=== PATIENT | male | born 1975 | race African-American/Black ===

== ENCOUNTER 2022-01-12 23:08 | Inpatient (IN) | payer SELFPAY ==
[~2022-01-12 23:08] MED LIST: Iopamidol 370 76% 100 ML VIAL ONE
[2022-01-12] MEDS ORDERED: Labetalol HCl 100 MG/20 ML VIAL ONE (23:37)
[2022-01-12 23:39] LABS: #Eosinphils 0.1 10x3/uL (0.0-0.5); #Monocytes 0.4 10x3/uL (0.0-1.1); #Neutrophils 2.8 10x3/uL (1.5-8.4); %Basophils 0.2 % (0.0-2.0); %Eosinophils 1.1 % (0.0-6.0); %Lymphocytes 39.7 % (18.0-47.0); %Monocytes 7.1 % (0.0-10.0); %Neutrophils 51.7 % (40.0-75.0); Hemoglobin 11.9 g/dL (13.5-17.5); Mean Corpuscular HGB CONC 33.5 g/dL (32.0-36.0); Mean Corpuscular Hemoglobin 25.6 pg (27.0-33.0); Mean Corpuscular Volume 76.3 fl (81.2-95.1); Mean Platelet Volume 11.7 fl (7.4-10.4); Platelet Count 250 10x3/uL (150-450); RBC Distribution Width 14.6 % (11.5-14.5); Red Blood Cell (RBC) Count 4.65 10x6/uL (4.32-5.72); White Blood Cell (WBC) Count 5.3 10x3/uL (3.5-10.5)
[2022-01-12 23:47] LABS: INR-International Normal Ratio 0.9; PTT 24.1 sec (22.0-33.0); Prothrombin Time 9.9 sec (9.5-12.1)
[2022-01-12 23:50] LABS: ALT (SGPT) 20 U/L (8-55); AST (SGOT) 16 U/L (5-34); Albumin 3.1 g/dL (3.5-5.0); Alkaline Phosphatase 110 U/L (40-110); Anion Gap 13 mmol/L (10-20); BUN (Urea Nitrogen) 18 mg/dL (8.9-20.6); Bilirubin, Total 0.2 mg/dL (0.2-1.2); Calc. Creatinine Clearance 0 mL/min (70-130); Carbon Dioxide 27 mmol/L (22-29); Chloride 93 mmol/L (98-107); Estimated GFR 41; Globulin 3.4 g/dL (2.4-3.5); Protein, Total 6.5 g/dL (6.0-8.3); Sodium 129 mmol/L (136-145)
[2022-01-12 23:55] LABS: Glucose 773 mg/dL (70-105)
[2022-01-13] MEDS ORDERED: Insulin Regular 300 UNITS/3 ML VIAL ONE (00:12)
[2022-01-13] MEDS ORDERED: Aspirin 325 MG TAB ONE (00:59)
[2022-01-13] MEDS ORDERED: Senokot S 8.6-50 MG TAB PO PRN (01:10)
[2022-01-13] MEDS ORDERED: Ondansetron PF 4 MG/2 ML Vial IVP PRN (01:10)
[2022-01-13] MEDS ORDERED: Calcium Carbonate 500 MG ChewTAB PO PRN (01:10)
[2022-01-13] MEDS ORDERED: Dextrose 5% in Water 1,000 ML IV PRN (01:15)
[2022-01-13] MEDS ORDERED: Dextrose 50% Abboject 50 ML SYRINGE SLOW IVP PRN (01:15)
[2022-01-13] MEDS ORDERED: Sodium Chloride 0.9% 1,000 ML IV SCH (01:15)
[2022-01-13] MEDS ORDERED: Sodium Chloride 0.9% 500 ML IV SCH (01:15)
[2022-01-13 03:00] LABS: Amphetamine Not Detected (NotDetected); Barbiturates Screen Not Detected (NotDetected); Benzodiazepine Screen Not Detected (NotDetected); Cocaine Metabolite Screen Not Detected (NotDetected); Methadone Not Detected (NotDetected); Methamphetamine Not Detected (NotDetected); Opiate Screen Not Detected (NotDetected); Oxycodone Screen Not Detected (NotDetected); Phencyclidine (PCP) Not Detected (NotDetected); THC/Cannabinoid Screen Not Detected (NotDetected); Tricyclic Screen Not Detected (NotDetected)
[2022-01-13 03:17] LABS: SARS-CoV-2 NAA Rapid Test DETECTED (NotDetected)
[2022-01-13 04:44] LABS: Cardiac Risk 8.8 (Less than 4.5); Cholesterol 210 mg/dl (< 200 Desired); HDL Cholesterol 24 mg/dL (>60 Neg Risk)
[2022-01-13 05:06] LABS: Triglycerides 1303 mg/dL (Less than 150)
[2022-01-13] MEDS: HumaLOG 300 UNITS/3 ML VIAL SC PRN ×4 (06:16→21:22)
[2022-01-13] MEDS ORDERED: Amlodipine 10 MG TAB PO SCH (09:00)
[2022-01-13] MEDS ORDERED: Clarithromycin 500 MG TAB PO SCH (09:00)
[2022-01-13] MEDS ORDERED: Clarithromycin 250 MG TAB PO SCH (09:00)
[2022-01-13] MEDS: Enoxaparin Sodium 40 MG/0.4 ML SYRINGE SC SCH (09:41)
[2022-01-13] MEDS: Lantus 1000 UNITS/10 ML VIAL SC SCH (09:42)
[2022-01-13] MEDS: metroNIDAZOLE 500 MG TAB PO SCH ×3 (09:42→21:13)
[2022-01-13 12:44] LABS: Hemoglobin A1c Greater than 14.0 % (4.0-6.0)
[2022-01-13] MEDS: hydrALAZINE 20 MG/ML VIAL SLOW IVP PRN ×3 (13:00→21:20)
[2022-01-13 14:31] LABS: INR-International Normal Ratio 0.9; PTT 25.5 sec (22.0-33.0); Prothrombin Time 9.8 sec (9.5-12.1)
[2022-01-13 14:45] LABS: D-Dimer Test 0.67 mg/L FEU (0.19-0.50)
[2022-01-13] MEDS ORDERED: (RENAL) NIRMATRELVIR 150 MG/RITONAVIR 100 MG TABLET PO SCH (21:00)
[2022-01-13] MEDS ORDERED: Rosuvastatin 20 MG TAB PO SCH (21:00)
[2022-01-13] MEDS ORDERED: Atorvastatin Calcium 20 MG TAB PO SCH (21:00)
[2022-01-13] MEDS: Clarithromycin 250 MG TAB PO SCH (21:13)
[2022-01-13] MEDS: (RENAL) NIRMATRELVIR 150 MG/RITONAVIR 100 MG TABLET PO SCH (21:14)
[2022-01-13] MEDS: Acetaminophen 325 MG TAB PO PRN (21:24)
[2022-01-14 05:25] LABS: #Eosinphils 0.1 10x3/uL (0.0-0.5); #Monocytes 0.4 10x3/uL (0.0-1.1); #Neutrophils 3.5 10x3/uL (1.5-8.4); %Basophils 0.2 % (0.0-2.0); %Lymphocytes 34.3 % (18.0-47.0); %Monocytes 6.5 % (0.0-10.0); %Neutrophils 57.8 % (40.0-75.0); Hemoglobin 10.8 g/dL (13.5-17.5); Mean Corpuscular HGB CONC 34.1 g/dL (32.0-36.0); Mean Corpuscular Hemoglobin 25.4 pg (27.0-33.0); Mean Corpuscular Volume 74.6 fl (81.2-95.1); Mean Platelet Volume 11.3 fl (7.4-10.4); Platelet Count 235 10x3/uL (150-450); RBC Distribution Width 14.5 % (11.5-14.5); Red Blood Cell (RBC) Count 4.25 10x6/uL (4.32-5.72)
[2022-01-14 05:36] LABS: Anion Gap 13 mmol/L (10-20); BUN (Urea Nitrogen) 20 mg/dL (8.9-20.6); Calc. Creatinine Clearance 95 mL/min (70-130); Calcium 8.9 mg/dL (7.8-10.44); Carbon Dioxide 25 mmol/L (22-29); Chloride 102 mmol/L (98-107); Estimated GFR 61; Glucose 396 mg/dL (70-105); Potassium 3.9 mmol/L (3.5-5.1); Sodium 136 mmol/L (136-145)
[2022-01-14] MEDS: HumaLOG 300 UNITS/3 ML VIAL SC PRN ×4 (05:38→21:06)
[2022-01-14] MEDS: hydrALAZINE 20 MG/ML VIAL SLOW IVP PRN ×3 (05:57→21:06)
[2022-01-14] MEDS: metroNIDAZOLE 500 MG TAB PO SCH ×3 (09:53→21:05)
[2022-01-14] MEDS: Enoxaparin Sodium 40 MG/0.4 ML SYRINGE SC SCH (09:53)
[2022-01-14] MEDS: Amlodipine 10 MG TAB PO SCH (09:53)
[2022-01-14] MEDS: Aspirin 81 mg Enteric Coated Tablet PO SCH (09:53)
[2022-01-14] MEDS: Clarithromycin 250 MG TAB PO SCH ×2 (09:53→21:05)
[2022-01-14] MEDS: (RENAL) NIRMATRELVIR 150 MG/RITONAVIR 100 MG TABLET PO SCH ×2 (09:54→21:06)
[2022-01-14] MEDS: Lantus 1000 UNITS/10 ML VIAL SC SCH (09:54)
[2022-01-14] MEDS: Acetaminophen 325 MG TAB PO PRN (09:55)
[2022-01-14] MEDS ORDERED: Fenofibrate 48 MG TAB PO SCH (12:00)
[2022-01-15] MEDS: hydrALAZINE 20 MG/ML VIAL SLOW IVP PRN (00:15)
[2022-01-15] MEDS: HumaLOG 300 UNITS/3 ML VIAL SC PRN (00:16)
[2022-01-15] MEDS: Acetaminophen 325 MG TAB PO PRN (03:10)
[2022-01-15] MEDS ORDERED: Fenofibrate 48 MG TAB PO SCH (09:00)
[2022-01-15] MEDS ORDERED: Losartan 25 MG TAB PO SCH (09:00)
[2022-01-15] MEDS: Aspirin 81 mg Enteric Coated Tablet PO SCH (09:41)
[2022-01-15] MEDS: Clarithromycin 250 MG TAB PO SCH (09:41)
[2022-01-15] MEDS: Lantus 1000 UNITS/10 ML VIAL SC SCH (09:41)
[2022-01-15] MEDS: Amlodipine 10 MG TAB PO SCH (09:41)
[2022-01-15] MEDS: (RENAL) NIRMATRELVIR 150 MG/RITONAVIR 100 MG TABLET PO SCH (09:41)
[2022-01-15] MEDS: metroNIDAZOLE 500 MG TAB PO SCH (09:41)
[2022-01-15] MEDS: Enoxaparin Sodium 40 MG/0.4 ML SYRINGE SC SCH (09:41)
[2022-01-15 12:10] VITALS: TEMP 97.9
[2022-01-15 12:52] VITALS: BP 168/86
[2022-01-16 20:57] LABS: Cardiolipin IgA Ab 4.6 APL-U/mL (<14 Negative); Cardiolipin IgG Ab 0.7 GPL-U/mL (<10 Negative); Cardiolipin IgM Ab 1.1 MPL-U/mL (<10 Negative); EliA APS New Method **** NEW METHOD ****
[2022-01-18 11:26] LABS: Protein C Activity 136 % (78-152)
[2022-01-18 13:27] LABS: Factor VIII Test 236.7 % ACTIVE (56-157)
[2022-01-18 15:01] LABS: HEX PHOS LA Tube 1 43.3 SEC; HEX PHOS LA Tube 2 41.8 SEC; Hexagonal Phospholipid Neut 1.5 SEC (0-8.0)
== END 2022-01-15 13:11 | disposition home or self-care (01) | DRG 64 ==
LOC: CSHERS 23:08 → CSHTELE 01-13 02:03
PROVIDERS: ADMIT Student in an Organized Health Care Education/Training Program; ATTEND Family Medicine
PROC: 8E0ZXY6 Isolation (ICD-10-PCS; principal; 2022-01-13)
PROC: XW0DXF5 Introduction of Other New Technology Therapeutic Substance into Mouth and Pharynx, External Approach, New Technology Group 5 (ICD-10-PCS; 2022-01-13)
DX: I63.81 Other cerebral infarction due to occlusion or stenosis of small artery (principal); U07.1 COVID-19; A04.8 Other specified bacterial intestinal infections; N17.9 Acute kidney failure, unspecified; I16.1 Hypertensive emergency; G81.91 Hemiplegia, unspecified affecting right dominant side; E11.65 Type 2 diabetes mellitus with hyperglycemia; N18.2 Chronic kidney disease, stage 2 (mild); E11.22 Type 2 diabetes mellitus with diabetic chronic kidney disease; I12.9 Hypertensive chronic kidney disease with stage 1 through stage 4 chronic kidney disease, or unspecified chronic kidney disease; R29.810 Facial weakness; R29.704 NIHSS score 4; D53.9 Nutritional anemia, unspecified; K27.9 Peptic ulcer, site unspecified, unspecified as acute or chronic, without hemorrhage or perforation; R47.1 Dysarthria and anarthria; E78.5 Hyperlipidemia, unspecified; Z79.84 Long term (current) use of oral hypoglycemic drugs; Z88.0 Allergy status to penicillin; Z79.4 Long term (current) use of insulin; Z87.891 Personal history of nicotine dependence; Z98.890 Other specified postprocedural states; Z79.82 Long term (current) use of aspirin; Z79.899 Other long term (current) drug therapy; Z83.3 Family history of diabetes mellitus; Z86.19 Personal history of other infectious and parasitic diseases
CPT/HCPCS: 36415; 36416; 70450; 70496; 70498; 70551; 71045; 80048; 80053; 80061; 80306; 82010; 83036; 83090; 84484; 85025; 85240; 85300; 85303; 85305; 85307; 85379; 85598; 85610; 85730; 86147; 93005; 93306; 93880; 96374; 96375; J0360; J1650; J1815; J2405; J7030; J7050; Q9967; U0002

== ENCOUNTER 2023-03-06 13:32 | Inpatient (IN) | payer BC, SELFPAY ==
[2023-03-06] MEDS ORDERED: Nitroglycerin 2% Ointment 1 INCH/1 GM Packet ONE (13:58)
[2023-03-06] MEDS ORDERED: Furosemide 40 MG/4 ML VIAL ONE (13:58)
[2023-03-06 14:33] LABS: ALT (SGPT) 22 U/L (8-55); AST (SGOT) 24 U/L (5-34); Albumin 3.2 g/dL (3.5-5.0); Alkaline Phosphatase 78 U/L (40-110); Anion Gap 14 mmol/L (10-20); BUN (Urea Nitrogen) 52 mg/dL (8.9-20.6); Bilirubin, Total Less than 0.2 mg/dL (0.2-1.2); Calc. Creatinine Clearance 0 mL/min (70-130); Calcium 7.7 mg/dL (7.8-10.44); Carbon Dioxide 17 mmol/L (22-29); Chloride 114 mmol/L (98-107); Estimated GFR 17; Globulin 2.9 g/dL (2.4-3.5); Glucose 110 mg/dL (70-105); Protein, Total 6.1 g/dL (6.0-8.3); Sodium 140 mmol/L (136-145)
[2023-03-06 14:35] LABS: #Eosinphils 0.2 10x3/uL (0.0-0.5); #Monocytes 0.5 10x3/uL (0.0-1.1); #Neutrophils 3.7 10x3/uL (1.5-8.4); %Basophils 0.2 % (0.0-2.0); %Eosinophils 3.3 % (0.0-6.0); %Lymphocytes 28.7 % (18.0-47.0); %Monocytes 8.2 % (0.0-10.0); %Neutrophils 59.4 % (40.0-75.0); Hematocrit 27.7 % (38.8-50.0); Hemoglobin 8.9 g/dL (13.5-17.5); Mean Corpuscular HGB CONC 32.1 g/dL (32.0-36.0); Mean Corpuscular Volume 83.9 fl (81.2-95.1); Mean Platelet Volume 11.1 fl (7.4-10.4); Platelet Count 247 10x3/uL (150-450); RBC Distribution Width 14.2 % (11.5-14.5); White Blood Cell (WBC) Count 6.1 10x3/uL (3.5-10.5)
[2023-03-06 14:39] LABS: Troponin I 0.027 ng/mL (< 0.028)
[2023-03-06] MEDS ORDERED: Acetaminophen 500 MG TAB ONE (15:03)
[2023-03-06] MEDS ORDERED: niCARdipine 25 MG/10 ML SDV ONE (16:11)
[2023-03-06] MEDS ORDERED: Ondansetron ODT 4 MG TAB PO PRN (16:38)
[2023-03-06] MEDS ORDERED: Glucagon 1 MG/ML KIT IM PRN (16:41)
[2023-03-06] MEDS ORDERED: Dextrose 5% in Water 1,000 ML IV PRN (16:41)
[2023-03-06] MEDS ORDERED: Dextrose 50% Abboject 50 ML SYRINGE SLOW IVP PRN (16:41)
[2023-03-06] MEDS ORDERED: HumaLOG 300 UNITS/3 ML VIAL SC PRN (16:41)
[2023-03-06] MEDS ORDERED: niCARdipine 25 MG in Sodium Chloride 0.9% 250 ML 250 ML IVPB SCH (16:45)
[2023-03-06 17:38] LABS: Troponin I 0.033 ng/mL (< 0.028)
[2023-03-06 20:10] LABS: Troponin I 0.023 ng/mL (< 0.028)
[2023-03-06 20:32] LABS: SARS-CoV-2 NAA Rapid Test Not Detected (NotDetected)
[2023-03-06] MEDS: Heparin 5,000 UNITS/ML VIAL SC SCH (21:00)
[2023-03-06] MEDS: Lantus 1000 UNITS/10 ML VIAL SC SCH (21:01)
[2023-03-06] MEDS ORDERED: hydrALAZINE 25 MG TAB PO SCH (21:15)
[2023-03-07 04:09] LABS: #Eosinphils 0.2 10x3/uL (0.0-0.5); #Monocytes 0.5 10x3/uL (0.0-1.1); #Neutrophils 3.1 10x3/uL (1.5-8.4); %Basophils 0.2 % (0.0-2.0); %Lymphocytes 31.6 % (18.0-47.0); %Monocytes 8.5 % (0.0-10.0); %Neutrophils 56.3 % (40.0-75.0); Hematocrit 26.2 % (38.8-50.0); Hemoglobin 8.2 g/dL (13.5-17.5); Mean Corpuscular HGB CONC 31.3 g/dL (32.0-36.0); Mean Corpuscular Hemoglobin 26.1 pg (27.0-33.0); Mean Corpuscular Volume 83.4 fl (81.2-95.1); Mean Platelet Volume 10.9 fl (7.4-10.4); Platelet Count 232 10x3/uL (150-450); RBC Distribution Width 14.6 % (11.5-14.5); Red Blood Cell (RBC) Count 3.14 10x6/uL (4.32-5.72); White Blood Cell (WBC) Count 5.4 10x3/uL (3.5-10.5)
[2023-03-07 04:18] LABS: Anion Gap 14 mmol/L (10-20); BUN (Urea Nitrogen) 51 mg/dL (8.9-20.6); Calc. Creatinine Clearance 42 mL/min (70-130); Calcium 7.9 mg/dL (7.8-10.44); Carbon Dioxide 16 mmol/L (22-29); Chloride 115 mmol/L (98-107); Estimated GFR 17; Glucose 192 mg/dL (70-105); Potassium 4.5 mmol/L (3.5-5.1); Sodium 140 mmol/L (136-145)
[2023-03-07] MEDS: Heparin 5,000 UNITS/ML VIAL SC SCH ×3 (07:57→20:16)
[2023-03-07] MEDS: hydrALAZINE 25 MG TAB PO SCH ×3 (07:57→20:13)
[2023-03-07] MEDS ORDERED: Amlodipine 5 MG TAB PO SCH (09:15)
[2023-03-07] MEDS: HumaLOG 300 UNITS/3 ML VIAL SC PRN (11:10)
[2023-03-07] MEDS ORDERED: cloNIDine 0.1 MG TAB PO SCH (11:45)
[2023-03-07 17:23] LABS: Albumin 2.8 g/dL (3.5-5.0); Anion Gap 11 mmol/L (10-20); BUN (Urea Nitrogen) 52 mg/dL (8.9-20.6); BUN/Creatinine Ratio 12.87; Calc. Creatinine Clearance 44 mL/min (70-130); Calcium 7.9 mg/dL (7.8-10.44); Carbon Dioxide 19 mmol/L (22-29); Chloride 117 mmol/L (98-107); Estimated GFR 18; Glucose 126 mg/dL (70-105); Potassium 4.7 mmol/L (3.5-5.1); Sodium 142 mmol/L (136-145)
[2023-03-07] MEDS ORDERED: NIFEdipine XL 60 MG ER.TAB PO SCH ×2 (18:00→22:45)
[2023-03-07] MEDS: cloNIDine 0.1 MG TAB PO PRN ×2 (18:01→21:37)
[2023-03-07] MEDS: Ondansetron PF 4 MG/2 ML Vial IVP PRN (18:45)
[2023-03-07] MEDS: Lantus 1000 UNITS/10 ML VIAL SC SCH (20:14)
[2023-03-07] MEDS ORDERED: Labetalol HCl 100 MG TAB PO SCH (21:00)
[2023-03-07] MEDS: Acetaminophen 325 MG TAB PO PRN (21:29)
[2023-03-07 21:52] LABS: Bilirubin Neg (Negative); Blood, Urine 10 (Negative); Clarity Clear (Clear); Glucose, Urine (Dipstick) 100 mg/dL (Negative); Ketone, Urine Negative (Negative); Leukocyte Negative (Negative); Nitrite Negative (Negative); Protein, Urine (Dipstick) 500 mg/dl (Neg-Trace); Specific Gravity, Urine 1.015 (1.005-1.030); Urobilinogen Normal mg/dL (Less than 2)
[2023-03-07] MEDS ORDERED: Sodium Bicarbonate Tab 325 MG TAB PO SCH (22:00)
[2023-03-07 22:05] LABS: Bacteria/HPF None Seen HPF (None Seen); RBC/HPF 0-3 HPF (0-3); Squamous Epithelial 0-3 HPF (0-3); WBC/HPF 0-3 HPF (0-3)
[2023-03-07 22:08] LABS: Creatinine, Urine 89.96 mg/dL (63-166)
[2023-03-07 22:17] LABS: Amphetamine Not Detected (NotDetected); Barbiturates Screen Not Detected (NotDetected); Benzodiazepine Screen Not Detected (NotDetected); Cocaine Metabolite Screen Not Detected (NotDetected); Methadone Not Detected (NotDetected); Methamphetamine Not Detected (NotDetected); Opiate Screen Not Detected (NotDetected); Oxycodone Screen Not Detected (NotDetected); Phencyclidine (PCP) Not Detected (NotDetected); THC/Cannabinoid Screen Not Detected (NotDetected); Tricyclic Screen Not Detected (NotDetected)
[2023-03-07] MEDS ORDERED: NIFEdipine XL 30 MG ER.TAB PO SCH (22:45)
[2023-03-08 03:32] LABS: #Eosinphils 0.2 10x3/uL (0.0-0.5); #Monocytes 0.5 10x3/uL (0.0-1.1); #Neutrophils 2.6 10x3/uL (1.5-8.4); %Basophils 0.4 % (0.0-2.0); %Lymphocytes 40.9 % (18.0-47.0); %Monocytes 9.3 % (0.0-10.0); %Neutrophils 46.2 % (40.0-75.0); Hematocrit 25.7 % (38.8-50.0); Mean Corpuscular HGB CONC 31.1 g/dL (32.0-36.0); Mean Corpuscular Hemoglobin 26.1 pg (27.0-33.0); Mean Platelet Volume 10.3 fl (7.4-10.4); Platelet Count 232 10x3/uL (150-450); RBC Distribution Width 14.5 % (11.5-14.5); Red Blood Cell (RBC) Count 3.06 10x6/uL (4.32-5.72); White Blood Cell (WBC) Count 5.6 10x3/uL (3.5-10.5)
[2023-03-08] MEDS: hydrALAZINE 20 MG/ML VIAL SLOW IVP PRN (03:38)
[2023-03-08 03:46] LABS: Albumin 2.9 g/dL (3.5-5.0); Anion Gap 14 mmol/L (10-20); BUN (Urea Nitrogen) 52 mg/dL (8.9-20.6); BUN/Creatinine Ratio 12.41; CK (CPK) 476 U/L (30-200); Calc. Creatinine Clearance 42 mL/min (70-130); Calcium 7.1 mg/dL (7.8-10.44); Carbon Dioxide 16 mmol/L (22-29); Chloride 115 mmol/L (98-107); Estimated GFR 17; Glucose 136 mg/dL (70-105); Phosphorus 4.5 mg/dL (2.3-4.7); Potassium 4.7 mmol/L (3.5-5.1); Sodium 140 mmol/L (136-145)
[2023-03-08 03:58] LABS: Iron 43 ug/dL (65-175); Iron Binding Capacity, Total 243 mcg/dL (261-462)
[2023-03-08] MEDS: Ondansetron PF 4 MG/2 ML Vial IVP PRN ×5 (04:45→21:52)
[2023-03-08] MEDS: Acetaminophen 325 MG TAB PO PRN ×4 (04:53→17:50)
[2023-03-08] MEDS ORDERED: Labetalol HCl 100 MG TAB PO SCH ×2 (05:00→09:00)
[2023-03-08] MEDS ORDERED: Labetalol HCl 100 MG/20 ML VIAL SLOW IVP SCH (06:00)
[2023-03-08] MEDS ORDERED: Albumin 25% 25 GM/100 ML BOT IVPB SCH (06:15)
[2023-03-08] MEDS: Heparin 5,000 UNITS/ML VIAL SC SCH ×3 (07:49→20:23)
[2023-03-08] MEDS ORDERED: Amlodipine 5 MG TAB PO SCH (09:00)
[2023-03-08] MEDS ORDERED: NIFEdipine XL 60 MG ER.TAB PO SCH (09:00)
[2023-03-08] MEDS: hydrALAZINE 25 MG TAB PO SCH ×3 (09:13→20:21)
[2023-03-08] MEDS: Sodium Bicarbonate Tab 325 MG TAB PO SCH ×3 (09:13→20:21)
[2023-03-08] MEDS: Spironolactone 25 MG TAB PO SCH ×2 (10:05→16:39)
[2023-03-08] MEDS: NIFEdipine XL 60 MG ER.TAB PO SCH ×2 (10:06→20:22)
[2023-03-08] MEDS: Isosorbide Mononitrate 30 MG ER.TAB PO SCH ×2 (10:41→20:22)
[2023-03-08] MEDS: HumaLOG 300 UNITS/3 ML VIAL SC PRN ×2 (11:29→16:50)
[2023-03-08] MEDS: Albumin 25% 25 GM/100 ML BOT IVPB SCH ×2 (12:38→17:50)
[2023-03-08 15:41] LABS: ALT (SGPT) 12 U/L (8-55); AST (SGOT) 13 U/L (5-34); Albumin 3.4 g/dL (3.5-5.0); Alkaline Phosphatase 59 U/L (40-110); Bilirubin, Direct 0.1 mg/dL (0.1-0.3); Bilirubin, Total 0.2 mg/dL (0.2-1.2); Lipase 6 U/L (8-78); Protein, Total 6.4 g/dL (6.0-8.3)
[2023-03-08] MEDS: Labetalol HCl 200 MG TAB PO SCH (20:21)
[2023-03-08] MEDS: Lantus 1000 UNITS/10 ML VIAL SC SCH (20:24)
[2023-03-09] MEDS: Albumin 25% 25 GM/100 ML BOT IVPB SCH ×2 (00:48→05:58)
[2023-03-09] MEDS: Ondansetron PF 4 MG/2 ML Vial IVP PRN (01:56)
[2023-03-09] MEDS: hydrALAZINE 20 MG/ML VIAL SLOW IVP PRN ×2 (03:06→11:50)
[2023-03-09 07:34] LABS: Albumin 3.8 g/dL (3.5-5.0); Anion Gap 17 mmol/L (10-20); BUN (Urea Nitrogen) 55 mg/dL (8.9-20.6); BUN/Creatinine Ratio 11.85; Calc. Creatinine Clearance 39 mL/min (70-130); Calcium 8.5 mg/dL (7.8-10.44); Carbon Dioxide 17 mmol/L (22-29); Chloride 113 mmol/L (98-107); Estimated GFR 15; Glucose 145 mg/dL (70-105); Phosphorus 5.1 mg/dL (2.3-4.7); Potassium 4.7 mmol/L (3.5-5.1); Sodium 142 mmol/L (136-145)
[2023-03-09] MEDS: Metoclopramide HCl 10 MG TAB PO SCH ×4 (07:36→21:23)
[2023-03-09] MEDS: Heparin 5,000 UNITS/ML VIAL SC SCH ×3 (07:48→21:22)
[2023-03-09] MEDS: Labetalol HCl 200 MG TAB PO SCH ×2 (07:59→21:23)
[2023-03-09] MEDS: hydrALAZINE 25 MG TAB PO SCH ×3 (07:59→21:22)
[2023-03-09] MEDS: Sodium Bicarbonate Tab 325 MG TAB PO SCH ×3 (08:00→21:24)
[2023-03-09] MEDS: Isosorbide Mononitrate 30 MG ER.TAB PO SCH ×2 (08:34→21:23)
[2023-03-09] MEDS: NIFEdipine XL 60 MG ER.TAB PO SCH ×2 (08:34→21:24)
[2023-03-09] MEDS: Polyethylene Glycol 3350 17 GM Packet PO SCH (08:34)
[2023-03-09 11:17] LABS: Creatinine, Urine 105.16 mg/dL (63-166)
[2023-03-09] MEDS: Acetaminophen 325 MG TAB PO PRN ×2 (11:50→16:34)
[2023-03-09] MEDS ORDERED: Minoxidil 2.5 MG TAB PO SCH (21:00)
[2023-03-09] MEDS ORDERED: Epoetin (ESRD) 10,000 UNITS/ML VIAL SC SCH (21:00)
[2023-03-09] MEDS: Lantus 1000 UNITS/10 ML VIAL SC SCH (21:48)
[2023-03-10 04:09] LABS: Albumin 3.5 g/dL (3.5-5.0); Anion Gap 15 mmol/L (10-20); BUN (Urea Nitrogen) 56 mg/dL (8.9-20.6); BUN/Creatinine Ratio 11.86; Calc. Creatinine Clearance 38 mL/min (70-130); Calcium 8.4 mg/dL (7.8-10.44); Carbon Dioxide 17 mmol/L (22-29); Chloride 111 mmol/L (98-107); Estimated GFR 15; Glucose 174 mg/dL (70-105); Phosphorus 5.1 mg/dL (2.3-4.7); Potassium 4.8 mmol/L (3.5-5.1); Sodium 138 mmol/L (136-145)
[2023-03-10] MEDS: HumaLOG 300 UNITS/3 ML VIAL SC PRN ×3 (05:59→21:33)
[2023-03-10] MEDS: cloNIDine 0.1 MG TAB PO PRN (06:07)
[2023-03-10] MEDS ORDERED: Sodium Bicarbonate 150 MEQ in Sterile Water 1,000 ML IV SCH (07:30)
[2023-03-10] MEDS ORDERED: Ergocalciferol 1.25 MG(50,000 UNITS) CAP PO SCH (09:00)
[2023-03-10] MEDS: Sodium Bicarbonate Tab 325 MG TAB PO SCH ×3 (09:11→21:29)
[2023-03-10] MEDS: NIFEdipine XL 60 MG ER.TAB PO SCH ×2 (09:11→21:28)
[2023-03-10] MEDS: Minoxidil 2.5 MG TAB PO SCH ×2 (09:11→21:28)
[2023-03-10] MEDS: Metoclopramide HCl 10 MG TAB PO SCH ×4 (09:11→21:28)
[2023-03-10] MEDS: Heparin 5,000 UNITS/ML VIAL SC SCH ×3 (09:12→21:26)
[2023-03-10] MEDS: Isosorbide Mononitrate 30 MG ER.TAB PO SCH ×2 (09:12→21:27)
[2023-03-10] MEDS: Calcitriol 0.25 MCG CAP PO SCH (09:12)
[2023-03-10] MEDS: Labetalol HCl 200 MG TAB PO SCH ×2 (09:13→21:49)
[2023-03-10] MEDS: Polyethylene Glycol 3350 17 GM Packet PO SCH (09:14)
[2023-03-10] MEDS: Acetaminophen 325 MG TAB PO PRN ×2 (12:30→23:23)
[2023-03-10 13:39] LABS: A/G Ratio 0.8 (0.7-1.7); Albumin 2.4 g/dL (2.9-4.4); Alpha 1 0.2 g/dL (0.0-0.4); Beta 0.9 g/dL (0.7-1.3); Gamma 0.8 g/dL (0.4-1.8); M-Spike 0.2 g/dL (Not Observed)
[2023-03-10] MEDS ORDERED: hydrALAZINE 20 MG/ML VIAL SLOW IVP PRN (13:52)
[2023-03-10] MEDS ORDERED: cloNIDine 0.1 MG TAB PO PRN (13:52)
[2023-03-10] MEDS: Lantus 1000 UNITS/10 ML VIAL SC SCH (21:27)
[2023-03-11 05:36] LABS: #Eosinphils 0.2 10x3/uL (0.0-0.5); #Monocytes 0.8 10x3/uL (0.0-1.1); #Neutrophils 3.6 10x3/uL (1.5-8.4); %Eosinophils 2.3 % (0.0-6.0); %Lymphocytes 29.3 % (18.0-47.0); %Monocytes 12.6 % (0.0-10.0); %Neutrophils 55.5 % (40.0-75.0); Hematocrit 23.4 % (38.8-50.0); Hemoglobin 7.5 g/dL (13.5-17.5); Mean Corpuscular HGB CONC 32.1 g/dL (32.0-36.0); Mean Corpuscular Hemoglobin 27.1 pg (27.0-33.0); Mean Corpuscular Volume 84.5 fl (81.2-95.1); Mean Platelet Volume 10.9 fl (7.4-10.4); Platelet Count 240 10x3/uL (150-450); RBC Distribution Width 14.3 % (11.5-14.5); Red Blood Cell (RBC) Count 2.77 10x6/uL (4.32-5.72); White Blood Cell (WBC) Count 6.5 10x3/uL (3.5-10.5)
[2023-03-11 05:53] LABS: Albumin 3.4 g/dL (3.5-5.0); Anion Gap 15 mmol/L (10-20); BUN (Urea Nitrogen) 58 mg/dL (8.9-20.6); BUN/Creatinine Ratio 11.89; Calc. Creatinine Clearance 36 mL/min (70-130); Calcium 8.3 mg/dL (7.8-10.44); Carbon Dioxide 21 mmol/L (22-29); Chloride 108 mmol/L (98-107); Estimated GFR 14; Glucose 137 mg/dL (70-105); Phosphorus 5.7 mg/dL (2.3-4.7); Potassium 4.7 mmol/L (3.5-5.1); Sodium 139 mmol/L (136-145)
[2023-03-11] MEDS: Polyethylene Glycol 3350 17 GM Packet PO SCH (09:25)
[2023-03-11] MEDS: Heparin 5,000 UNITS/ML VIAL SC SCH ×3 (09:26→21:02)
[2023-03-11] MEDS: Sodium Bicarbonate Tab 325 MG TAB PO SCH ×3 (09:26→21:07)
[2023-03-11] MEDS: Isosorbide Mononitrate 30 MG ER.TAB PO SCH ×2 (09:27→21:04)
[2023-03-11] MEDS: NIFEdipine XL 60 MG ER.TAB PO SCH ×2 (09:27→21:06)
[2023-03-11] MEDS: Metoclopramide HCl 10 MG TAB PO SCH ×4 (09:27→21:05)
[2023-03-11] MEDS: Labetalol HCl 200 MG TAB PO SCH ×2 (09:28→21:04)
[2023-03-11] MEDS: Calcitriol 0.25 MCG CAP PO SCH (09:28)
[2023-03-11] MEDS: Minoxidil 2.5 MG TAB PO SCH ×2 (09:29→21:06)
[2023-03-11] MEDS ORDERED: Sodium Bicarbonate 150 MEQ in Sterile Water 1,000 ML IV SCH (09:30)
[2023-03-11] MEDS ORDERED: Epoetin (ESRD) 10,000 UNITS/ML VIAL SC SCH (12:30)
[2023-03-11] MEDS: Iron, Sodium Ferric Gluconate 250 MG in Sodium Chloride 0.9% 250 ML 250 ML IVPB SCH (13:00)
[2023-03-11] MEDS: HumaLOG 300 UNITS/3 ML VIAL SC PRN (17:49)
[2023-03-11] MEDS: Lantus 1000 UNITS/10 ML VIAL SC SCH (21:03)
[2023-03-12 07:34] LABS: #Eosinphils 0.1 10x3/uL (0.0-0.5); #Monocytes 0.8 10x3/uL (0.0-1.1); #Neutrophils 3.5 10x3/uL (1.5-8.4); %Basophils 0.2 % (0.0-2.0); %Eosinophils 2.2 % (0.0-6.0); %Lymphocytes 28.9 % (18.0-47.0); %Monocytes 12.6 % (0.0-10.0); %Neutrophils 55.8 % (40.0-75.0); Hematocrit 22.9 % (38.8-50.0); Hemoglobin 7.4 g/dL (13.5-17.5); Mean Corpuscular HGB CONC 32.3 g/dL (32.0-36.0); Mean Corpuscular Hemoglobin 27.1 pg (27.0-33.0); Mean Corpuscular Volume 83.9 fl (81.2-95.1); Mean Platelet Volume 10.2 fl (7.4-10.4); Platelet Count 236 10x3/uL (150-450); RBC Distribution Width 14.2 % (11.5-14.5); Red Blood Cell (RBC) Count 2.73 10x6/uL (4.32-5.72); White Blood Cell (WBC) Count 6.3 10x3/uL (3.5-10.5)
[2023-03-12 07:49] LABS: Carbon Dioxide 22 mmol/L (22-29); Chloride 107 mmol/L (98-107); Potassium 4.8 mmol/L (3.5-5.1); Sodium 141 mmol/L (136-145)
[2023-03-12 07:50] LABS: Albumin 3.2 g/dL (3.5-5.0); Anion Gap 17 mmol/L (10-20); BUN (Urea Nitrogen) 59 mg/dL (8.9-20.6); BUN/Creatinine Ratio 12.14; Calc. Creatinine Clearance 36 mL/min (70-130); Calcium 8.4 mg/dL (7.8-10.44); Estimated GFR 14; Glucose 140 mg/dL (70-105); Phosphorus 5.1 mg/dL (2.3-4.7)
[2023-03-12 08:03] LABS: PTT 32.8 sec (22.0-33.0); Prothrombin Time 10.4 sec (9.5-12.1)
[2023-03-12] MEDS: Sodium Bicarbonate Tab 325 MG TAB PO SCH ×3 (09:57→21:19)
[2023-03-12] MEDS: Calcitriol 0.25 MCG CAP PO SCH (09:57)
[2023-03-12] MEDS: Isosorbide Mononitrate 30 MG ER.TAB PO SCH ×2 (09:57→21:14)
[2023-03-12] MEDS: Labetalol HCl 200 MG TAB PO SCH ×2 (09:57→21:19)
[2023-03-12] MEDS: NIFEdipine XL 60 MG ER.TAB PO SCH ×2 (09:57→21:17)
[2023-03-12] MEDS: Minoxidil 2.5 MG TAB PO SCH ×2 (09:58→21:14)
[2023-03-12] MEDS: Metoclopramide HCl 10 MG TAB PO SCH ×4 (09:59→21:41)
[2023-03-12] MEDS: Polyethylene Glycol 3350 17 GM Packet PO SCH (10:00)
[2023-03-12] MEDS: Heparin 5,000 UNITS/ML VIAL SC SCH ×3 (10:00→21:14)
[2023-03-12] MEDS: Iron, Sodium Ferric Gluconate 250 MG in Sodium Chloride 0.9% 250 ML 250 ML IVPB SCH (13:07)
[2023-03-12] MEDS: Lantus 1000 UNITS/10 ML VIAL SC SCH (21:34)
[2023-03-13 04:53] LABS: #Eosinphils 0.2 10x3/uL (0.0-0.5); #Monocytes 0.9 10x3/uL (0.0-1.1); #Neutrophils 3.4 10x3/uL (1.5-8.4); %Basophils 0.3 % (0.0-2.0); %Eosinophils 2.4 % (0.0-6.0); %Lymphocytes 27.9 % (18.0-47.0); %Monocytes 14.6 % (0.0-10.0); %Neutrophils 54.3 % (40.0-75.0); Hematocrit 23.1 % (38.8-50.0); Hemoglobin 7.6 g/dL (13.5-17.5); Mean Corpuscular HGB CONC 32.9 g/dL (32.0-36.0); Mean Corpuscular Volume 85.2 fl (81.2-95.1); Mean Platelet Volume 10.9 fl (7.4-10.4); Platelet Count 239 10x3/uL (150-450); RBC Distribution Width 13.9 % (11.5-14.5); Red Blood Cell (RBC) Count 2.71 10x6/uL (4.32-5.72); White Blood Cell (WBC) Count 6.3 10x3/uL (3.5-10.5)
[2023-03-13 04:58] LABS: Albumin 3.3 g/dL (3.5-5.0); Anion Gap 16 mmol/L (10-20); BUN (Urea Nitrogen) 57 mg/dL (8.9-20.6); BUN/Creatinine Ratio 11.54; Calc. Creatinine Clearance 35 mL/min (70-130); Calcium 8.4 mg/dL (7.8-10.44); Carbon Dioxide 21 mmol/L (22-29); Chloride 105 mmol/L (98-107); Estimated GFR 14; Glucose 120 mg/dL (70-105); Potassium 4.3 mmol/L (3.5-5.1); Sodium 138 mmol/L (136-145)
[2023-03-13] MEDS: Metoclopramide HCl 10 MG TAB PO SCH ×2 (06:54→12:35)
[2023-03-13] MEDS ORDERED: Spironolactone 25 MG TAB PO SCH (08:00)
[2023-03-13] MEDS ORDERED: Labetalol HCl 200 MG TAB PO SCH (09:00)
[2023-03-13] MEDS: Isosorbide Mononitrate 30 MG ER.TAB PO SCH (09:04)
[2023-03-13] MEDS: Calcitriol 0.25 MCG CAP PO SCH (09:04)
[2023-03-13] MEDS: NIFEdipine XL 60 MG ER.TAB PO SCH (09:05)
[2023-03-13] MEDS: Minoxidil 2.5 MG TAB PO SCH (09:05)
[2023-03-13] MEDS: Sodium Bicarbonate Tab 325 MG TAB PO SCH (09:05)
[2023-03-13] MEDS: Polyethylene Glycol 3350 17 GM Packet PO SCH (09:06)
[2023-03-13] MEDS: Heparin 5,000 UNITS/ML VIAL SC SCH (09:17)
[2023-03-13] MEDS: Iron, Sodium Ferric Gluconate 250 MG in Sodium Chloride 0.9% 250 ML 250 ML IVPB SCH (13:21)
[2023-03-13 14:02] VITALS: BMI 38.5
[2023-03-13 14:05] VITALS: BP 128/74; TEMP 98.1
[2023-03-13 15:13] LABS: Albumin, PEP 24hr Ur 69.8 % (NOT ESTAB.); Alpha-1-Globulin, PEP 24h Ur 3.3 % (NOT ESTAB.); Alpha-2-Globulin, PEP 24h Ur 6.4 % (NOT ESTAB.); Beta Globulin, PEP 24h Ur 12.1 % (NOT ESTAB.); Gamma Globulin, PEP 24h Ur 8.4 % (NOT ESTAB.); M-Spike,% PEP 24hr Ur Not Observed % (Not Observed); Protein, PEP 24hr calculated 10822 mg/24 hr (30-150); Protein, Urine 676.4 mg/dL (Not Estab.)
== END 2023-03-13 12:55 | disposition home or self-care (01) | DRG 305 ==
LOC: CSHERS 13:32 → CSHERHOLD 15:03 → CSHIMCU 20:14 → CSHTELE 03-09 11:03
PROVIDERS: ADMIT Internal Medicine; ATTEND Internal Medicine
PROC: 30233J1 Transfusion of Nonautologous Serum Albumin into Peripheral Vein, Percutaneous Approach (ICD-10-PCS; principal; 2023-03-08)
DX: I16.9 Hypertensive crisis, unspecified (principal); N17.9 Acute kidney failure, unspecified; E87.20 Acidosis, unspecified; I50.32 Chronic diastolic (congestive) heart failure; N18.4 Chronic kidney disease, stage 4 (severe); N25.81 Secondary hyperparathyroidism of renal origin; I13.0 Hypertensive heart and chronic kidney disease with heart failure and stage 1 through stage 4 chronic kidney disease, or unspecified chronic kidney disease; E11.22 Type 2 diabetes mellitus with diabetic chronic kidney disease; A08.4 Viral intestinal infection, unspecified; R60.0 Localized edema; E66.01 Morbid (severe) obesity due to excess calories; E88.09 Other disorders of plasma-protein metabolism, not elsewhere classified; E11.21 Type 2 diabetes mellitus with diabetic nephropathy; D63.1 Anemia in chronic kidney disease; E55.9 Vitamin D deficiency, unspecified; R11.2 Nausea with vomiting, unspecified; G47.33 Obstructive sleep apnea (adult) (pediatric); Z11.52 Encounter for screening for COVID-19; Z68.38 Body mass index [BMI] 38.0-38.9, adult; Z79.84 Long term (current) use of oral hypoglycemic drugs; Z79.82 Long term (current) use of aspirin; Z79.899 Other long term (current) drug therapy; Z83.3 Family history of diabetes mellitus; Z82.49 Family history of ischemic heart disease and other diseases of the circulatory system; Z88.0 Allergy status to penicillin
CPT/HCPCS: 36415; 36416; 71045; 76700; 76770; 80048; 80053; 80069; 80306; 81001; 82088; 82306; 82550; 82570; 82728; 83540; 83550; 83690; 83880; 83970; 84155; 84156; 84165; 84166; 84244; 84300; 84484; 84540; 85025; 85610; 85730; 93005; 93306; 96374; 96375; A4217; J0360; J1644; J1815; J1940; J2405; J2916; J7050; P9047; Q4081; U0002